=== PATIENT | female | born 1965 | race American Indian/Alaskan Native ===

== ENCOUNTER 2021-08-12 14:48 | Emergency (ER) | payer SELFPAY ==
[2021-08-12 15:14] VITALS: BP 173/109
== END 2021-08-12 22:47 | disposition left against medical advice (07) ==
LOC: ED 14:48
DX: J45.909 Unspecified asthma, uncomplicated (principal); Z53.21 Procedure and treatment not carried out due to patient leaving prior to being seen by health care provider